=== PATIENT | female | born 1955 | race Caucasian/White ===

== ENCOUNTER → 2016-04-28 | Outpatient (CLI) | payer OTHER | LOC: COL.RAD 04-27 10:30 | DX: M25.552 Pain in left hip (principal) | CPT/HCPCS: J3301; Q9967 ==

== ENCOUNTER → 2016-09-21 | Outpatient (CLI) | payer OTHER | LOC: COL.LAB 11:10 | DX: Z01.812 Encounter for preprocedural laboratory examination (principal) ==